=== PATIENT | female | born 1945 | race American Indian/Alaskan Native ===

== ENCOUNTER 2017-12-26 11:34 | Emergency (ER) | payer BC, OTHER ==
[2017-12-26 11:48] VITALS: BP 156/71
[2017-12-26] MEDS ORDERED: ULTRAM PO ONE (13:51)
[2017-12-26] MEDS ORDERED: MOTRIN PO ONE (13:51)
--- NOTE | 2017-12-26 13:51 | Emergency Department Report ---
ED Extremity Problem HPI - General Chief complaint: Pain General Stated complaint: LOWER BACK PAIN Time Seen by Provider: 12/26/17 13:45 Source: patient Mode of arrival: Ambulatory Limitations: No Limitations - History of Present Illness Initial comments: Patient is a 72-year-old female past history osteoarthritis who is complaining of some right lower back pain with radiation to the right lower extremity down to the level of the knee. Patient denies any trauma or falls. Patient states she's had this issue in the past was having exacerbation. Patient denies any bowel or bladder dysfunction at this time. Patient also denies any fevers chills nausea vomiting diarrhea. Severity scale (0 -10): 6 Quality: aching, sharp - Related Data Previous Rx's Medication Instructions Recorded Last Taken Type Diclofenac Sodium 75 mg PO BID #20 tablet. 06/17/14 Unknown Rx HYDROcodone/APAP 5-325 [Lutz 1 each PO Q6HR PRN #21 tablet 06/17/14 Unknown Rx 5-325 mg TAB] methOCARBAMOL [Robaxin] 500 mg PO BID PRN #20 tab 06/17/14 Unknown Rx Ibuprofen [Motrin] 600 mg PO Q8H PRN #20 tablet 12/26/17 Unknown Rx traMADol [Ultram] 50 mg PO Q6HR PRN #12 tablet 12/26/17 Unknown Rx Allergies Allergy/AdvReac Type Severity Reaction Status Date / Time Penicillins Allergy Unknown Verified 06/17/14 12:10 ED Review of Systems ROS: Stated complaint: LOWER BACK PAIN Other details as noted in HPI Comment: All other systems reviewed and negative ED Past Medical Hx - Past Medical History Hx Hypertension: Yes Additional medical history: thyroid - Surgical History Past Surgical History?: No - Social History Smoking Status: Never Smoker Substance Use Type: None - Medications Home Medications: Home Medications Medication Instructions Recorded Confirmed Last Taken Type Diclofenac Sodium 75 mg PO BID #20 tablet. 06/17/14 Unknown Rx HYDROcodone/APAP 5-325 [Lutz 1 each PO Q6HR PRN #21 tablet 06/17/14 Unknown Rx 5-325 mg TAB] methOCARBAMOL [Robaxin] 500 mg PO BID PRN #20 tab 06/17/14 Unknown Rx Ibuprofen [Motrin] 600 mg PO Q8H PRN #20 tablet 12/26/17 Unknown Rx traMADol [Ultram] 50 mg PO Q6HR PRN #12 tablet 12/26/17 Unknown Rx ED Physical Exam - General Limitations: No Limitations General appearance: alert, in no apparent distress - Head Head exam: Present: atraumatic, normocephalic - Eye Eye exam: Present: normal appearance - ENT ENT exam: Present: mucous membranes moist - Neck Neck exam: Present: normal inspection - Respiratory Respiratory exam: Present: normal lung sounds bilaterally. Absent: respiratory distress, wheezes, rales, rhonchi - Cardiovascular Cardiovascular Exam: Present: regular rate, normal rhythm. Absent: systolic murmur, diastolic murmur, rubs, gallop - GI/Abdominal GI/Abdominal exam: Present: soft, normal bowel sounds. Absent: distended, tenderness, guarding, rebound - Extremities Exam Extremities exam: Present: normal inspection - Back Exam Back exam: Present: normal inspection - Neurological Exam Neurological exam: Present: alert, oriented X3 - Psychiatric Psychiatric exam: Present: normal affect, normal mood - Skin Skin exam: Present: warm, dry, intact, normal color. Absent: rash ED Course Vital Signs 12/26/17 11:45 Temperature 98.3 F Pulse Rate 78 Respiratory 16 Rate Blood Pressure 156/71 O2 Sat by Pulse 99 Oximetry ED Medical Decision Making - Medical Decision Making Patiently given meds for symptomatically relief we discharged home. Critical care attestation.: If time is entered above; I have spent that time in minutes in the direct care of this critically ill patient, excluding procedure time. ED Disposition Clinical Impression: Sciatica Qualifiers: Laterality: right Qualified Code(s): M54.31 - Sciatica, right side Disposition: DC- TO HOME OR SELFCARE Is pt being admited?: No Does the pt Need Aspirin: No Condition: Stable Instructions: Lumbar Radiculopathy (ED) Referrals: PRIMARY CARE, [Primary Care Provider] - 3-5 Days
== END 2017-12-26 14:07 | disposition home or self-care (01) ==
LOC: ED 11:34
DX: M54.31 Sciatica, right side (principal); I10 Essential (primary) hypertension; Z88.0 Allergy status to penicillin
CPT/HCPCS: 99282